=== PATIENT | female | born 1985 | race Caucasian/White ===

== ENCOUNTER 2021-10-13 19:16 | Emergency (ER) | payer BC ==
[~2021-10-13] VITALS: Ht 175.3 cm; Wt 70.3 kg
--- NOTE | 2021-10-13 19:45 | NUR ---
Lab at bedside
--- NOTE | 2021-10-13 19:55 | NUR ---
Dr. Nevarez at bedside
[2021-10-13 19:57] LABS: HEMATOCRIT 35.4 % (31.2-41.9); MEAN CORPUSCULAR HEMOGLOBIN 30.6 uug (24.7-32.8); MEAN CORPUSCULAR VOLUME 89.3 fL (75.5-95.3); PLATELET COUNT (AUTO) 247 K/uL (179-408)
--- NOTE | 2021-10-13 20:08 | NUR ---
Pt resting in bed. No distress noted. Pt is alert and oriented. All extremities WNL.
[2021-10-13 20:16] LABS: CREATININE 0.7 mg/dL (0.6-1.3); POTASSIUM 3.6 mmol/L (3.5-5.1)
--- NOTE | 2021-10-13 21:36 | NUR ---
discharged home in stable condition. All extremities WNL. No distress noted. Able to make needs known.
[2021-10-13 21:37] VITALS: BP 110/60
== END 2021-10-13 21:38 | disposition home or self-care (01) ==
LOC: ER 19:16
DX: O20.0 Threatened abortion (principal); Z3A.01 Less than 8 weeks gestation of pregnancy
CPT/HCPCS: 36415; 76856; 85025; 86850; 86900; 86901; A4663